=== PATIENT | male | born 1955 | race Caucasian/White ===

== ENCOUNTER 2017-05-03 12:39 | Emergency (ER) | payer BC ==
[~2017-05-03] VITALS: Ht 177.8 cm; Wt 83.9 kg
[2017-05-03 13:18] LABS: URINE BILIRUBIN NEGATIVE (Negative); URINE BLOOD NEGATIVE (Negative); URINE COLOR YELLOW; URINE GLUCOSE-RANDOM* NEGATIVE (Negative); URINE KETONES NEGATIVE (Negative); URINE NITRITE NEGATIVE (Negative); URINE PROTEIN (DIPSTICK) NEGATIVE (Negative); URINE SPECIFIC GRAVITY <= 1.005 (1.003-1.035); URINE UROBILINOGEN 0.2 E.U./dl (0.2-1.0)
[2017-05-03] MEDS ORDERED: HYDROCODONE-AP1 EAC6 PO (14:21)
[2017-05-03] MEDS ORDERED: NAPROSYN500 MG PO (14:21)
[2017-05-03] MEDS ORDERED: LIDODERM 5%1 PATC1 TRANSDERM (14:21)
[2017-05-03 14:30] VITALS: BP 168/79
== END 2017-05-03 14:30 | disposition home or self-care (01) ==
LOC: ER 12:39
PROVIDERS: Physician Assistant
DX: S22.32XA Fracture of one rib, left side, initial encounter for closed fracture (principal); F10.99 Alcohol use, unspecified with unspecified alcohol-induced disorder; Z98.890 Other specified postprocedural states; W07.XXXA Fall from chair, initial encounter; Y93.89 Activity, other specified; Y92.89 Other specified places as the place of occurrence of the external cause; Y99.8 Other external cause status